=== PATIENT | male | born 1980 | race African-American/Black ===

== ENCOUNTER 2016-07-19 13:34 | Emergency (ER) | payer OTHER ==
[~2016-07-19] VITALS: Ht 175.3 cm; Wt 104.0 kg
[2016-07-19 16:12] VITALS: BP 121/69
== END 2016-07-19 16:13 | disposition home or self-care (01) ==
LOC: ER 14:43
DX: H60.91 Unspecified otitis externa, right ear (principal); E11.9 Type 2 diabetes mellitus without complications; F12.10 Cannabis abuse, uncomplicated
CPT/HCPCS: 99283

== ENCOUNTER 2016-07-30 20:25 | Emergency (ER) | payer OTHER ==
[~2016-07-30] VITALS: Ht 175.3 cm; Wt 103.0 kg
[2016-07-30] MEDS ORDERED: ACETAMINOPHEN 500MG TABLET PO ONE (22:30)
[2016-07-30 23:55] VITALS: BP 122/78
== END 2016-07-30 23:57 | disposition home or self-care (01) ==
LOC: ER 21:36
DX: S16.1XXA Strain of muscle, fascia and tendon at neck level, initial encounter (principal); R55 Syncope and collapse; E11.9 Type 2 diabetes mellitus without complications; Z98.890 Other specified postprocedural states; V44.5XXA Car driver injured in collision with heavy transport vehicle or bus in traffic accident, initial encounter; Y92.488 Other paved roadways as the place of occurrence of the external cause
CPT/HCPCS: 70450; 99284

== ENCOUNTER 2019-02-03 02:26 | Emergency (ER) | payer OTHER ==
[~2019-02-03] VITALS: Ht 172.7 cm; Wt 111.0 kg
[2019-02-03] MEDS ORDERED: SODIUM CHLORIDE 0.9% 1,000 ML IV ONE (03:34)
[2019-02-03 03:53] LABS: BASOPHILS % 0.6 % (0.0-2.0); EOSINOPHILS % 1.4 % (0.0-5.0); HEMATOCRIT. 42.6 % (42.0-52.0); HEMOGLOBIN. 14.4 g/dL (14.0-18.0); LYMPHOCYTES % 14.2 % (20.0-50.0); MEAN CORPUSCULAR VOLUME 88.8 fL (80.0-94.0); MEAN PLATELET VOLUME 9.6 fl (7.4-10.4); MONOCYTES % 7.9 % (2.0-8.0); NEUTROPHILS % 75.9 % (40.0-76.0); PLATELET 174 x1000/uL (130-400); RED CELL DISTRIBUTION WIDTH 13.6 % (11.6-14.6)
[2019-02-03 04:06] LABS: CHLORIDE 106 mEq/L (98-107)
[2019-02-03 04:22] LABS: CLARITY URINE CLEAR (CLEAR); COLOR URINE YELLOW (YELLOW); KETONES URINE NEGATIVE (NEGATIVE); LEUKOCYTE ESTERASE URINE NEGATIVE (NEGATIVE); NITRITE URINE NEGATIVE (NEGATIVE); OCCULT BLOOD URINE NEGATIVE (NEGATIVE); PROTEIN URINE NEGATIVE (NEGATIVE); SPECIFIC GRAVITY URINE 1.022 (1.005-1.030)
[2019-02-03 05:06] VITALS: BP 144/88
== END 2019-02-03 06:15 | disposition home or self-care (01) ==
LOC: ER 02:26
DX: R09.81 Nasal congestion (principal); R05 Cough; M79.10 Myalgia, unspecified site; R07.89 Other chest pain; R00.0 Tachycardia, unspecified; E11.9 Type 2 diabetes mellitus without complications
CPT/HCPCS: 36415; 71045; 80053; 81003; 83880; 84484; 85025; 85379; 93005; 99284; J7030; Z7610